=== PATIENT | female | born 1930 ===

== ENCOUNTER 2017-02-19 07:37 | Day surgery (SDC) | payer OTHER ==
[2017-02-19 09:33] VITALS: BMI 17.6
[2017-02-19] MEDS ORDERED: Propofol 10 mg/ml Inj (20 ML) ONE (09:47)
[2017-02-19] MEDS ORDERED: Indomethacin 50 MG Suppository PR ONE (10:33)
[2017-02-19] MEDS ORDERED: Iohexol 240 (50 ml) ONE (10:34)
[2017-02-19] MEDS ORDERED: Lactated Ringer's 1,000 ML IV ONE (10:35)
[2017-02-19] MEDS ORDERED: Simethicone 40 mg/0.6 ml Liquid (30 ml) ONE (10:36)
[2017-02-19] MEDS ORDERED: Lactated Ringer's 500 ML IV SCH (11:45)
[2017-02-19 11:50] VITALS: TEMP 97.1
[2017-02-19 12:36] VITALS: RESP 15
[2017-02-19 13:07] VITALS: BP 157/69; PULSE 64; O2SAT 97
--- NOTE | 2017-02-20 13:11 | RAD ---
PROCEDURE: Intraoperative Fluoroscopy. HISTORY: CBD STONE FINDINGS: Fluoroscopic assistance was provided for ERCP. Total fluoroscopic time (continuous mode) utilized during the procedure: 71.1 seconds.
== END 2017-02-19 12:57 | disposition home or self-care (01) ==
LOC: C.SDS 07:37
PROVIDERS: ATTEND Internal Medicine
DX: K80.50 Calculus of bile duct without cholangitis or cholecystitis without obstruction (principal); Z87.19 Personal history of other diseases of the digestive system
CPT/HCPCS: 43275; 76000; J0696; J7120